=== PATIENT | male | born 1995 | race Caucasian/White ===

== ENCOUNTER 2019-01-15 01:06 | Emergency (ER) | payer OTHER ==
[~2019-01-15] VITALS: Ht 182.9 cm; Wt 112.5 kg
[2019-01-15 01:11] VITALS: Ht 182.9 cm; Wt 112.5 kg
[2019-01-15 01:21] LABS: PLATELET COUNT 294 x10^3mcL (130-400)
[2019-01-15 01:25] LABS: BASOPHIL % 0.4 % (0-2); RED CELL DISTRIBUTION WIDTH 12.3 % (11.5-14.5)
[2019-01-15 01:29] LABS: CALCIUM 8.9 mg/dL (8.5-10.1); CARBON DIOXIDE 29.3 mmol/L (21-32); CHLORIDE SERUM 103 mmol/L (98-107); CREATININE SERUM 0.9 mg/dL (0.7-1.3); GFR1 > 60 mL/min; GLUCOSE SERUM 101 mg/dL (74-106); POTASSIUM SERUM 3.5 mmol/L (3.5-5.1); SODIUM SERUM 141 mmol/L (136-145)
[2019-01-15 01:36] LABS: ALBUMIN 3.8 g/dL (3.4-5.0); ALKALINE PHOSPHATASE 100 U/L (46-116); ALT/SGPT 65 U/L (16-63); AST/SGOT 23 U/L (15-37); BILIRUBIN TOTAL 0.48 mg/dL (0.20-1.00); TOTAL PROTEIN, SERUM 8.2 g/dL (6.4-8.2)
[2019-01-15 02:21] VITALS: BP 136/81
== END 2019-01-15 02:22 | disposition home or self-care (01) ==
LOC: ED 01:06
PROVIDERS: Emergency Medicine
DX: B34.9 Viral infection, unspecified (principal); F17.200 Nicotine dependence, unspecified, uncomplicated
CPT/HCPCS: 99406; J7030

== ENCOUNTER 2019-12-07 20:18 | Emergency (ER) | payer OTHER, SELFPAY ==
[~2019-12-07] VITALS: Ht 182.9 cm; Wt 100.7 kg
[2019-12-07 20:46] VITALS: BP 128/81; Ht 182.9 cm; Wt 100.7 kg
== END 2019-12-07 21:38 | disposition home or self-care (01) ==
LOC: ED 20:18
DX: Z20.828 Contact with and (suspected) exposure to other viral communicable diseases (principal)
CPT/HCPCS: U0003-CS

== ENCOUNTER 2020-01-13 00:48 | Emergency (ER) | payer OTHER, SELFPAY ==
[~2020-01-13] VITALS: Ht 182.9 cm; Wt 101.8 kg
[2020-01-13 00:55] VITALS: Ht 182.9 cm; Wt 101.8 kg
[2020-01-13 02:21] VITALS: BP 113/66
== END 2020-01-13 02:21 | disposition home or self-care (01) ==
LOC: ED 00:48
DX: U07.1 COVID-19 (principal); B34.9 Viral infection, unspecified; J45.909 Unspecified asthma, uncomplicated
CPT/HCPCS: Q0092; U0003

== ENCOUNTER 2020-01-14 09:12 | Emergency (ER) | payer OTHER, SELFPAY ==
[~2020-01-14] VITALS: Ht 182.9 cm; Wt 101.6 kg
[2020-01-14 09:32] VITALS: Ht 182.9 cm; Wt 101.6 kg
[2020-01-14 10:59] VITALS: BP 124/76
== END 2020-01-14 10:59 | disposition home or self-care (01) ==
LOC: ED 09:12
DX: U07.1 COVID-19 (principal); B34.9 Viral infection, unspecified; J45.909 Unspecified asthma, uncomplicated